=== PATIENT | male | born 1940 | race Caucasian/White ===

== ENCOUNTER → 2022-08-07 | Outpatient (CLI) | payer MEDICARE ==
--- NOTE | 2022-08-07 07:58 | US ---
EXAMINATION TYPE: US abdomen complete DATE OF EXAM: 08/07/2022 COMPARISON: NONE CLINICAL HISTORY: R10.13 HTN. Epigastric pain, abd distention TECHNIQUE: Multiple sonographic images of the abdomen are obtained. FINDINGS: EXAM MEASUREMENTS: Liver Length: 17.3 cm Gallbladder Wall: 0.2 cm CBD: 0.5 cm Spleen: 12.6 cm Right Kidney: 10.1 x 4.5 x 4.6 cm Left Kidney: 12.0 x 4.0 x 6.0 cm Pancreas: wnl Liver: wnl Gallbladder: wnl Evidence for sonographic Emerson's sign: no CBD: wnl Spleen: wnl Right Kidney: 1.5 x 1.7 x 1.3cm Left Kidney: wnl Upper IVC: wnl Abd Aorta: wnl The liver is homogenous. The intrahepatic portion of the IVC and proximal abdominal aorta are within normal limits. There is no evidence of cholelithiasis. Common bile duct is unremarkable. The visu alized portions of the pancreas are homogenous. The spleen is unremarkable. Kidneys are symmetric a nd free of hydronephrosis. No renal lesions are seen. IMPRESSION: No distinct abnormality appreciated at this time.
--- NOTE | 2022-08-07 18:10 | CA ---
Transthoracic Echo Report Name: Kin Vasquez Age: 82 Gender: M : 1940 Exam Date: 08/07/2022 09:11 Exam Location: [facility] Ht (in): 68 Wt (lb): 180 Ordering Physician: Magan Burnham MD Attending/Referring Phys: FUNMILAYO, Tej Rn Residential Nataly Del Castillo, [facility] Procedure CPT: Indications: R94.31 I10 HTN Cardiac Hx: Technical Quality: Contrast 1: N/A Total Dose (mL): Contrast 2: Total Dose (mL): MEASUREMENTS (Male / Female) Normal Values 2D ECHO LV Diastolic Diameter PLAX 4.8 cm 4.2 - 5.9 / 3.9 - 5.3 cm LV Systolic Diameter PLAX 3.9 cm IVS Diastolic Thickness 1.3 cm 0.6 - 1.0 / 0.6 - 0.9 cm LVPW Diastolic Thickness 1.4 cm 0.6 - 1.0 / 0.6 - 0.9 cm LV Relative Wall Thickness 0.6 LA Systolic Diameter LX 4.3 cm 3.0 - 4.0 / 2.7 - 3.8 cm LA Volume 80.2 cm??? 18 - 58 / 22 - 52 cm??? M-MODE Aortic Root Diameter MM 3.5 cm LA Systolic Diameter MM 4.7 cm LA Ao Ratio MM 1.3 MV E Point Septal Separation 0.4 cm AV Cusp Separation MM 1.6 cm DOPPLER AV Peak Velocity 159.4 cm/s AV Peak Gradient 10.2 mmHg MV Area PHT 3.8 cm??? Mitral E Point Velocity 40.5 cm/s Mitral A Point Velocity 70.0 cm/s Mitral E to A Ratio 0.6 MV Deceleration Time 201.4 ms MV E' Velocity 5.6 cm/s Mitral E to MV E' Ratio 7.3 TR Peak Velocity 233.6 cm/s TR Peak Gradient 21.8 mmHg Right Ventricular Systolic Press 25.9 mmHg FINDINGS Left Ventricle Mildly increased septal wall thickness. Left ventricular ejection fraction is estimated at 50-55%. Right Ventricle Normal right ventricular size and function. Right Atrium Normal right atrial size. Left Atrium Mildly increased left atrial diameter. Severely increased left atrial volume. Possible PFO. Mitral Valve Mitral annular calcification. Mild mitral regurgitation. Aortic Valve Trileaflet aortic valve. Aortic valve sclerosis. Tricuspid Valve Structurally normal tricuspid valve. Mild tricuspid regurgitation. Pulmonic Valve Pulmonic valve not well visualized. Pericardium Normal pericardium. Aorta Normal size aortic root and proximal ascending aorta. CONCLUSIONS Technically difficult study for interpretation Normal left ventricular dimension and systolic function Poorly visualized intracardiac valves Aortic valve sclerosis Mild mitral regurgitation Previewed by: Dr. Jalil Garcia MD (Electronically Signed) Final Date: 07 August 2022 18:09
--- NOTE | 2022-08-07 18:30 | CA ---
Stress Echo Report Kin Vasquez Age: 82 Gender: M : 1940 Exam Date: 08/07/2022 08:56 Exam Location: [facility] Ht (in): 69 Wt (lb): 180 Ordering Physician: Magan Burnham MD Referring Physician: Tej MELLO [employer] Advisor: Nataly Del Castillo RDCS Technologist Procedure CPT: Indication: R94.31 ABNORMAL EKG ICD-9 Codes: Rhythm: Patient History: Cardiac Medications: Medications in past 24 hours: Contrast: Stress Results Protocol: Brown Total dose(mL): Exercise Duration (min:sec): [address] Depression (mm): Angina Score: Mora Score: METS: 7.1 Resting HR: 62 Resting BP: 178 / 75 Peak HR: 129 Peak BP: 256 / 65 Max Predicted HR: 140 92 % Max Predicted HR Target HR: 119 Double Product: [id number] Stress Summary: BP Response: Reason for Termination: MAX EXERTION/TARGET HR/ PT SOB Cardiac Symptoms: DIFFICULTY IN BREATHING ECG Analysis Resting ECG: Stress ECG: Arrhythmia: Echo Analysis Resting Echo: Peak Echo Analysis: MEASUREMENTS (Male/Female) Normal Values CONCLUSIONS Good exercise tolerance Normal EKG in response to exercise Normal echocardiogram in response to exercise Dr. Jalli Garcia MD (Electronically Signed) Final Date: 07 August 2022 18:29
== END | disposition home or self-care (01) ==
LOC: RADUSWWP 07:12
PROVIDERS: ATTEND Family Medicine
DX: I34.0 Nonrheumatic mitral (valve) insufficiency (principal); I35.8 Other nonrheumatic aortic valve disorders; I10 Essential (primary) hypertension; R10.13 Epigastric pain; R94.31 Abnormal electrocardiogram [ECG] [EKG]
CPT/HCPCS: 76700; 93306; 93351